=== PATIENT | female | born 1980 | race African-American/Black ===

== ENCOUNTER → 2016-12-26 | Outpatient (CLI) | payer MEDICAID ==
[~2016-12-26] MED LIST: ASPIRIN 81M81 MG/TA2 PO; ASPIRIN E.C. 8181 MG PO; BACTRIM 400 MG-1 TAB PO; CALCIUM + D 6001 TAB PO; CALCIUM 600 W/V1 TAB PO; CALCIUM 600MG+D1 TAB PO; CELEXA 20MG20 MG/TAB PO; CELEXA10 MG PO; CELEXA40 MG PO; CELLCEPT 5500 MG/TAB PO; CLARITIN LIQUI-10 MG PO; COREG 6.256.25 MG/TA PO; CORTISPORIN TC10 ML OT; CORTISPORIN1 OI1 OD; COZAAR 25MG25 MG/TAB PO; COZAAR100 MG PO; DEMADEX100 MG PO; DESYREL DIVIDO150 M1 PO; DOXYCYCLINE 10100 MG PO; FERROUS SU325 MG/TAB PO; FERROUS SULFAT324 M1 PO; FISH OIL 1000MG1 CAP PO; FISH OIL 500 M1 EAC1 PO; FISH OIL500 MG PO; FOSAMAX 70MG TA70 MG PO; GLUCOPHAGE1000 MG PO; KEPPRA XR500 MG PO; KEPPRA750 MG PO; LACRI LUBE1 OIN OD; LACRI LUBE1 OIN OP; LACRI-LUBE1 OIN OD; LAMICTAL 100MG100 MG PO; LAMICTAL XR200 MG PO; LANTUS100 U/ML SC; LASIX 20MG TABL20 MG PO; LASIX 40MG TABL40 MG PO; LIPITOR 40MG TA40 MG PO; LOPRESSOR 225 MG/TAB PO; LOPRESSOR 550 MG/TAB PO; LOTRISONE CREAM15 GM TP; LYRICA 100MG C100 M1 PO; LYRICA200 MG PO; MAGCITRATE PO; MAGNACAPS100 MG PO; MAGNESIUM CITR100 MG PO; MAGNESIUM OXID420 MG PO; MASON NATURAL2000 IU PO; MORPHINE 1515 MG/TAB PO; MS CONTIN 115 MG/TAB PO; MULTI VITAMINS1 TAB PO; MULTIPLE VITAMI1 CAP PO; MULTIVITAMIN1 TA1 PO; Magnesium Citrate PO; NORCO 325 MG-7.1 TAB PO; NORVASC 10MG10 MG PO; NORVASC 5MG5 MG/TAB PO; NOVOLOG 100U100 U/M1 SQ; ORAMORPH SR15 MG PO; PREDNISONE20 MG PO; PRIL40 PO; PRILOSEC 20MG20 MG PO; PROAIR HFA0.09 MG/AC IH; RT ADVAIR 128 DISKUS IH; RT ADVAIR HFA 412 GM IH; TOPROL XL 25MG25 MG PO; VITAMIN D 50,1.25 MG PO; VITAMIN D32000 I1 PO; VITAMIN D5000 IU PO; XARELTO10 MG PO; XARELTO20 MG PO; ZANTAC 150MG T150 MG PO; [UNRECOGNIZED DRUG - OTHER] TP
== END ==
LOC: COL.PUL 09:30 → COL.VAS 09:30 → COL.PUL 10:15
DX: I42.0 Dilated cardiomyopathy (principal)

== ENCOUNTER → 2017-02-27 | Outpatient (CLI) | payer MEDICAID ==
[~2017-02-27] VITALS: Ht 165.1 cm; Wt 90.9 kg
[2017-02-27 10:07] VITALS: BP 119/76; PULSE 89; TEMP 98.3
[2017-02-27 11:34] LABS: INR 1.1 (0.8-3.0); PROTHROMBIN TIME 11.8 SECONDS (9.7-12.8)
== END ==
LOC: COL.VAS 07:18 → COL.RAD 10:00
PROVIDERS: Radiology Diagnostic Radiology
DX: Z86.718 Personal history of other venous thrombosis and embolism (principal)

== ENCOUNTER 2017-03-01 08:45 | Outpatient (CLI) | payer MEDICAID ==
[2017-03-01] VITALS (7 sets, daily range): BP systolic 105–134; BP diastolic 70–90; PULSE 56–93
[~2017-03-01] VITALS: Ht 157.5 cm; Wt 97.7 kg
[~2017-03-01 08:45] MED LIST changes: -CELLCEPT 5500 MG/TAB PO; -COREG 6.256.25 MG/TA PO; -DEMADEX100 MG PO
[2017-03-01] MEDS ORDERED: VITAMIN D 50,1.25 MG PO (11:28)
[2017-03-01] MEDS ORDERED: CELLCEPT 5500 MG/TAB PO (11:30)
[2017-03-01] MEDS ORDERED: COREG 6.256.25 MG/TA PO (11:35)
[2017-03-01] MEDS ORDERED: DEMADEX100 MG PO (11:35)
== END 2017-03-01 18:48 | disposition home or self-care (01) ==
LOC: COL.CAR 08:45
PROVIDERS: Radiology Diagnostic Radiology
DX: Z95.828 Presence of other vascular implants and grafts (principal)
CPT/HCPCS: J2250; J3010; J7120; Q9967

== ENCOUNTER 2017-08-22 10:00 | Outpatient (RCR) | payer MEDICARE, MEDICAID ==
[~2017-08-22 10:00] MED LIST changes: +CELLCEPT 5500 MG/TAB PO; +COREG 6.256.25 MG/TA PO; +DEMADEX100 MG PO
== END 2017-08-28 ==
LOC: WSPT
DX: G40.409 Other generalized epilepsy and epileptic syndromes, not intractable, without status epilepticus (principal)
CPT/HCPCS: G8978-GP; G8979-GP

== ENCOUNTER 2017-08-31 08:45 | Outpatient (RCR) | payer MEDICARE, MEDICAID | END 2017-11-27 | LOC: WSPT | DX: G40.409 Other generalized epilepsy and epileptic syndromes, not intractable, without status epilepticus (principal) ==

== ENCOUNTER 2017-09-01 15:43 | Emergency (ER) | payer MEDICARE, MEDICAID ==
[~2017-09-01] VITALS: Ht 162.6 cm; Wt 92.3 kg
[2017-09-01 15:46] VITALS: TEMP 97.6
[2017-09-01 16:26] LABS: BASO % 0.5 % (0.0-2.0); EOS # 0.1 (0.0-0.7); EOS % 1.5 % (0-4.0); GRAN # 2.6 (1.4-6.5); GRAN % 64.9 % (42.2-75.2); LYMPH % 24.9 % (20.0-51.0); MEAN CELL VOLUME 95 fl (80.0-100.0); MEAN CORPUSCULAR HGB CONC 30 g/dl (33.0-37.0); MEAN PLATELET VOLUME 10.8 fl (7.4-10.4); MONO # 0.3 (0.1-0.6); MONO % 7.7 % (1.7-9.3); PLATELET COUNT 327 K/mm3 (130-400); RED BLOOD COUNT 3.22 M/mm3 (4.10-5.30); REDCELL DISTRIBUTION WIDTH-CV 14.5 % (11.5-14.5); WHITE BLOOD COUNT 4.1 K/mm3 (4.8-10.8)
[2017-09-01 16:27] LABS: HEMATOCRIT 30.7 % (37.0-47.0); HEMOGLOBIN 9.3 g/dl (12.5-16.0); MEAN CORPUSCULAR HEMOGLOBIN 29 pg (27.0-31.0)
[2017-09-01 17:12] LABS: ADJUSTED CALCIUM 9.6 mg/dL (8.4-10.2); ALANINE AMINOTRANSFERASE 19 U/L (9-52); ALBUMIN 4.1 gm/dL (3.5-5.0); ALKALINE PHOSPHATASE 68 U/L (50-136); ANION GAP 10 mmol/L (7-16); BILIRUBIN,TOTAL 0.4 mg/dL (0.0-1.0); BLOOD UREA NITROGEN 33 mg/dL (7-17); CALCIUM 9.7 mg/dL (8.4-10.2); CARBON DIOXIDE 29 mmol/L (22-30); CHLORIDE 104 mmol/L (98-107); CREATININE, serum 1.86 mg/dL (0.52-1.25); GLUCOSE 154 mg/dL (74-106); POTASSIUM 3.8 mmol/L (3.4-5.0); SODIUM 143 mmol/L (137-145); TOTAL PROTEIN 7.9 gm/dL (6.4-8.2)
[2017-09-01 17:18] LABS: B-TYPE NATRIURETIC PEPTIDE 60 pg/mL (0-125)
[2017-09-01 17:21] LABS: C-REACTIVE PROTEIN < 0.5 mg/dL (0.0-0.9)
[2017-09-01 17:35] VITALS: BP 129/74; PULSE 85
== END 2017-09-01 17:42 | disposition home or self-care (01) ==
LOC: COL.ER 15:43
PROVIDERS: Family Medicine
DX: N18.9 Chronic kidney disease, unspecified (principal); R10.32 Left lower quadrant pain; R19.7 Diarrhea, unspecified; E11.9 Type 2 diabetes mellitus without complications; I50.9 Heart failure, unspecified; J44.9 Chronic obstructive pulmonary disease, unspecified; Z86.73 Personal history of transient ischemic attack (TIA), and cerebral infarction without residual deficits; Z87.39 Personal history of other diseases of the musculoskeletal system and connective tissue; Z79.4 Long term (current) use of insulin